=== PATIENT | male | born 1965 | race Caucasian/White ===

== ENCOUNTER 2024-01-15 09:11 | Emergency (ER) | payer OTHER, SELFPAY ==
[2024-01-15 09:51] VITALS: BP 107/79; PULSE 101; RESP 16; TEMP 36.9; O2SAT 98
--- NOTE | 2024-01-15 10:27 | ED.URI ---
HPI - URI/Sore Throat General Chief Complaint: Upper Respiratory Infection Stated Complaint: Sinus Infection Symptoms Time Seen by Provider: 01/15/24 10:27 Source: patient and RN notes reviewed Mode of arrival: ambulatory Limitations: no limitations History of Present Illness HPI Narrative: 58-year-old male presented for complaint of sinus congestion, facial pressure nasal drainage for about 3 weeks. However he also reports he started with body aches, fever, fatigue, and diarrhea over the past 2-3 days. He denies shortness of breath, wheezing, nausea, vomiting or lethargy. Taking DayQuil, NyQuil and Zyrtec. MD elicited complaint: cough Related Data Home Medications Medication Instructions Recorded Confirmed multivit with minerals-iron 18 1 tablet PO DAILY 04/12/19 01/15/24 mg-folic ac 400 mcg-vit K 25 mcg tablet (Adults Multivitamin) Allergies Allergy/AdvReac Type Severity Reaction Status Date / Time codeine Allergy Severe Abdominal Verified 01/15/24 09:50 Pain Review of Systems Review of Systems: CONSTITUTIONAL: Endorses malaise, chills, sweats, fever EYES: Denies visual changes, redness, or discharge ENT: Reports rhinorrhea, congestion, sinus pain, otalgia CARDIOVASCULAR: Denies chest pain, palpitations, edema RESPIRATORY: Reports cough, post nasal drainage. Denies dyspnea GASTROINTESTINAL: Denies abdominal pain, nausea, vomiting, reports diarrhea SKIN: Denies rash or itching MUSCULOSKELETAL: Endorses myalgia PMFSH Past Medical History Medical History Arthritis Rotator cuff tear, left Surgical History Surgical History H/O left knee surgery H/O shoulder surgery History of hernia surgery Family History Family History Other Family history of arthritis Family history of cardiovascular disease Social History Social History Social History: caffeine use Smoking packs per day: 0.25 Smoking cigarettes per day: 5.0 Years smoked: 10 Smoking pack-years: 2.50 Smoking status: Former smoker Alcohol intake: current Drinks per week: 2 Substance use: unknown Occupation/Education: occupation 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 EYES: PERRLA, conjunctivae clear ENT: Mucous membranes moist. TMs pearly dalton with dull light reflex bilaterally; no tragal tenderness. Oropharynx mildly erythematous without lesions or exudate, no drooling, no hoarseness, no trismus, uvula midline. No tripod positioning, muffled voice, soft palate or pharyngeal wall bulging NECK: Supple. No lymphadenopathy CHEST: Clear to auscultation, breath sounds equal. No wheezing, rhonchi, rales, or stridor. No respiratory distress, speaks in full sentences. HEART: Regular rate and rhythm. No murmur heard. SKIN: Warm, dry, no rash. NEURO: Alert and oriented x3. PSYCH: Normal mood and affect Course Course Emergency Course: Patient is aware of diagnosis, understands and agrees to treatment plan. Anticipatory guidance given. Patient agrees to follow-up as directed and is aware of reasons to seek care at the emergency department. Portions of this record may have been created with voice recognition software Level of Care: Express Care Visit Vital Signs Vital signs: Vital Signs Temperature 98.4 F 01/15/24 09:51 Pulse Rate 101 H 01/15/24 09:51 Respiratory Rate 16 01/15/24 09:51 Blood Pressure 107/79 01/15/24 09:51 Pulse Oximetry 98 01/15/24 09:51 Oxygen Delivery Room Air 01/15/24 09:51 Temperature 98.4 F 01/15/24 09:51 Pulse Rate 101 H 01/15/24 09:51 Resp
[2024-01-15 11:06] LABS: EDINFLUASCREEN Negative (Negative); EDINFLUBSCREEN Negative (Negative)
[2024-01-15 11:06] LABS: EDINFLUASCREEN Positive (Negative); EDINFLUBSCREEN Negative (Negative)
== END 2024-01-15 10:39 | disposition home or self-care (01) ==
PROVIDERS: Emergency Provider Nurse Practitioner Family
DX: J10.1 Influenza due to other identified influenza virus with other respiratory manifestations (principal); J32.9 Chronic sinusitis, unspecified; Z87.891 Personal history of nicotine dependence; M19.90 Unspecified osteoarthritis, unspecified site
CPT/HCPCS: 87804; 99213; G0463

== ENCOUNTER 2024-08-30 11:46 | Emergency (ER) | payer OTHER, SELFPAY ==
--- NOTE | ~2024-08-30 | XR_ITS ---
Clinical Indication: Wheezing PA and lateral views of the chest: Comparison: 04/10/2011 Findings: The lungs are clear, without evidence of focal consolidation or pleural effusion. Cardiome diastinal silhouette is within normal limits. Bones and soft tissues are unremarkable. Impression: Normal chest. Reviewed, dictated and finalized at [facility]. Impression: Normal chest.
[2024-08-30 11:56] VITALS: BP 133/77; PULSE 86; RESP 20; TEMP 36.3; O2SAT 97
--- NOTE | 2024-08-30 12:07 | ED.URI ---
HPI - URI/Sore Throat General Chief Complaint: Upper Respiratory Infection Stated Complaint: Cough/Sinus Source: patient Mode of arrival: ambulatory Limitations: no limitations History of Present Illness HPI Narrative: Patient is a 59 year old male who presents to the clinic with complaints of a cough, chest tightness, and sinus congestion x 10 days. He has been taking mucinex and dayquil at home with minimal relief. He is a previous smoker, but states that he does not currently have an inhaler. Denies any fevers, chills, body aches, or difficulty swallowing. Related Data Home Medications ?Medication ?Instructions ?Recorded ?Confirmed ?Last Taken ?Type multivit with minerals-iron 18 1 tablet PO DAILY 04/12/19 01/15/24 Unknown History mg-folic ac 400 mcg-vit K 25 mcg tablet (Adults Multivitamin) Allergies Allergy/AdvReac Type Severity Reaction Status Date / Time codeine Allergy Severe Abdominal Verified 08/30/24 12:02 Pain Review of Systems Review of Systems: CONSTITUTIONAL: Denies body aches, fever, chills, or sweats. EYES: Denies visual changes, redness, or discharge. ENT: Reports congestion. Denies rhinnorhea, sore throat, or otalgia. CARDIOVASCULAR: Denies chest pain, palpitations, or edema. RESPIRATORY: Reports cough and dyspnea. GASTROINTESTINAL: Denies abdominal pain, nausea, vomiting, or diarrhea. GENITOURINARY: Denies dysuria or hematuria. SKIN: Denies rash, itching, or wounds. MUSCULOSKELETAL: Denies back pain, joint pain, or myalgia. NEUROLOGIC: Denies headache, numbness, tingling, or weakness. PSYCH: Denies depression or anxiety. All systems reviewed & are unremarkable except as noted in HPI and below PMFSH Past Medical History Medical History Arthritis Rotator cuff tear, left Surgical History Surgical History H/O left knee surgery H/O shoulder surgery History of hernia surgery Family History Family History Other Family history of arthritis Family history of cardiovascular disease Social History Social History Social History: caffeine use Smoking packs per day: 0.25 Smoking cigarettes per day: 5.0 Years smoked: 10 Smoking pack-years: 2.50 Smoking status: Former smoker Alcohol intake: current Drinks per week: 2 Substance use: unknown Occupation/Education: occupation 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 Please see nursing chart for further information. There is no relevant family history pertinent to the presenting complaint. Exam Narrative: GENERAL: Well-appearing, well-nourished, and in no acute distress. EYES: EOMI. No redness or drainage. Conjunctivae normal. ENT: Mucous membranes pink and moist. Nares clear. No rhinorrhea. TMs normal bilaterally. No Throat Erythema, no tonsillar exudate, uvula midline. Nasal congestion noted. NECK: Normal AROM. Supple. No lymphadenopathy. CHEST: No respiratory distress. Wheezing noted to left and right lobes throughout. HEART: Regular rate and rhythm. No murmur appreciated. Normal peripheral pulses. ABDOMEN: Soft, nontender, nondistended, normal active bowel sounds. SKIN: Warm, dry, no rash. Capillary refill normal. Normal skin turgor. NEURO: No focal deficits. Alert and oriented x3. Gait steady. PSYCH: Normal affect. No signs of depression or anxiety. Course Course Level of Care: Express Care Visit Reevaluation(s) Reevaluation #1: Patient breathing improved after Duoneb. Patient cayla states that he feels better. Date: 08/30/24 Time: 12:30 Vital Signs Vital signs: Vital Signs Temperature 97.4 F L 08/30/24 11:56 Pulse Rate 86 08/30/24 11:56 Respiratory Rate 20 08/30/24 11:56 Blood Pressure 133/77 08/30/24 11:56 Pulse Oximetry 97 08/30/24 11:56 Oxygen Delivery Room Air 08/30/24 11:56 Temperature 97.4 F L 08/30/24 11:56 Pulse Rate 86 08/30/24 11:56 Respiratory Rate 20 08/30/24 11:56 Blood Pressure 133/77 08/30/24 11:56 Pulse Oximetry 97 08/30/24 11:56 Oxygen Delivery Room Air 08/30/24 11:56 MDM - URI/Sore Throat MDM Narrative Medical decision making narrative: Discussed physical exam findings and chest xray. Duoneb given in clinic for wheezing. Steroid, Augmentin, Albuterol solution given for bacterial bronchitis. Advised supportive measures and signs/symptoms to go to the ER. Pt is appropriate for outpt treatment and follow up. Differential Diagnosis Differential diagnosis: Likely upper respiratory infection, sinusitis, viral infection and bronchitis Imaging Data Radiologist's impression: ITS Impressions Chest X-Ray 08/30/24 12:12 Impression: Normal chest. Critical Care Time Critical Care Time Critical Care Time: No Discharge Plan Discharge Clinical Impression: Bronchitis Patient Disposition: Home Condition: Stable Instructions: Acute Bronchitis (ED) Additional Instructions: Take antibiotic and steroid as prescribed. Use albuterol solution in nebulizer as prescribed. Recommend Flonase spray and Zyrtec (or Claritin/Kristan) Tylenol every 8 hours as needed for pain Symptomatic treatment includes: rest, fluids, and increase humidity of the air at home. Follow up with your primary care provider in 1 week. Go to the ER for worsening symptoms or concerns. Patient Language: Mongolian Prescriptions: New prednisone 20 mg tablet 40 mg PO DAILY 5 Days Qty: 10 0RF amoxicillin-pot clavulanate 875-125 mg tablet 1 tablet PO Q12H 10 Days Qty: 20 0RF albuterol sulfate 2.5 mg /3 mL (0.083 %) solution for nebulization 2.5 mg inhalation Q4-6H PRN (Reason: shortness of breath or wheezing) Qty: 75 0RF No Action Adults Multivitamin 18 mg iron-400 mcg-25 mcg Tablet 1 tablet PO DAILY Follow-up/Referrals: Kvng,Noe Hernandez MD [Primary Care Provider] - Stand Alone Forms: Work/School Release IP Time of Disposition: 12:27
[2024-08-30] MEDS: IPRATROPIUM 0.5 MG/ALBUTEROL SULFATE 2.5 MG AMPUL.NEB 3 ML INHALATION (12:16)
== END 2024-08-30 12:30 | disposition home or self-care (01) ==
PROVIDERS: PCP Internal Medicine
DX: J40 Bronchitis, not specified as acute or chronic (principal); Z87.891 Personal history of nicotine dependence; M19.90 Unspecified osteoarthritis, unspecified site
CPT/HCPCS: 71046; 99213; G0463